=== PATIENT | male | born 2000 | race African-American/Black ===

== ENCOUNTER 2025-11-03 19:26 | Emergency (ER) | payer OTHER ==
[2025-11-03 20:11] VITALS: TEMP 97.2
[2025-11-03 20:15] VITALS: BP 143/80; O2SAT 98
== END 2025-11-03 21:10 | disposition home or self-care (01) ==
LOC: M ED 19:54
DX: Z01.89 Encounter for other specified special examinations (principal)